=== PATIENT | male | born 1960 | race African-American/Black ===

== ENCOUNTER 2017-02-18 22:47 | Emergency (ER) | payer MEDICARE, OTHER ==
[2017-02-18 22:56] VITALS: BP 117/74; PULSE 48; RESP 16; O2SAT 98
--- NOTE | 2017-02-18 23:08 | ED.REPORT ---
HPI-Chest Pain 40 and Over Date of Service February 18, 2017 ED Provider: Dr. Pierce 56 y/o male with a hx of migraines presents to the ED complaining of chest discomfort, onset 35 minutes ago which radiates to his left arm. The pt reports he was relaxing when he experienced sudden chest pain. He states "it feels like something is coming out of my chest". He currently reports the pain 6/10 in severity and 9/10 maximum. As per the pt's , he was pacing around the house holding his chest. The pt denies taking any medication for the pain. He took Excedrin due to a migraine episode. The pt also took two pills of Nadolol, while he was prescribed 1qd two days ago. He took the last pill at 1900. Associated sx include some SOB and anxiety. He denies dizziness, lightheadedness , diaphoresis, nausea, edema, fever, chills and cough.The pt reports he has been able to do his regular activities. He has no personal or family hx of MO. The pt also complains of intermittent bloating for the past year, which has been getting significantly worse recently. Nursing Notes Stated Complaint: CHEST PAIN Chief Complaint: Chest Pain Nursing Notes Reviewed: Yes ([employer], meds not reconciled) Allergies: Coded Allergies: No Known Allergies (Unverified , 02/18/17) Scheduled Nadolol (Nadolol) 20 Mg Tablet 20 MG PO DAILY Miscellaneous Medications ([tylenol migraine]) General Time Seen by MD: 23:07 Chief Complaint Chest pain Hx Obtained From: Patient, Spouse Arrived By: Walk-in Sudden in Onset?: Yes Onset Occurred: 31 - 45 minutes ago Context of Onset: At rest Symptom Duration: Since onset Location: : Substernal Quality: Painful Radiation: : Arm left Severity: Current: Pain level 6 out of 10 Severity: Maximum: Pain level 9 out of 10 Recent Healthcare: Recent doctor visit Similar Sx Previous: No Risk Factors HEART Score HEART for MACE Score: 0-3 (low risk 0.9%-1.7%) Past Medical History Past Medical History Migraines Past Surgical History none reported Smoking History Never Smoker Social History Alcohol Use: Denies alcohol use Drug Use: Denies drug use Other Social History: Good social support Ambulatory Status Independent Review of Systems Reports: Bloating Constitutional: Denies: Fever Respiratory: Reports: Shortness of breath, Denies: Non-productive cough Cardiovascular: Reports: Chest pain, Denies: Edema GI: Denies: Nausea Skin: Denies Diaphoresis Neurologic: Denies: Dizziness, Lightheaded Psychiatric: Reports: Anxiety Complete sys rev & neg: except as marked. Physical Exam Initial Vital Signs Vital Signs (First) Date Time Temp Pulse Resp B/P Pulse Ox O2 Delivery O2 Flow Rate FiO2 02/18/17 22:56 48 16 117/74 98 Room Air 02/18/17 23:16 36.4 Initial VS: Reviewed, Vital signs abnormal Head / Eyes: Atraumatic, Normocephalic, PERRL ENT: Mucous membranes moist, Conjunctiva normal, No scleral icterus Neck: Supple, Non-tender, Full range of motion Extremities: Vascular intact, Neuro intact, No swelling, No tenderness Skin: Warm, Dry, No cyanosis Neurologic: Alert, Oriented, Nonfocal General/Constitutional: Awake, Alert, No acute distress, Well appearing, Cooperative, Not toxic appearing Behavior: Positive: Anxious Respiratory / Chest: Atraumatic, Breath sounds NL, Breath sounds = bilat, No respiratory distress, No rales, No rhonchi, No wheezing Cardiovascular: Regular rhythm, Heart sounds NL, No gallop, No murmurs, No rubs Mildly Bradycardic Abdomen: Atraumatic, Soft, Non-tender, No guarding, No rebound Interpretation & Diagnostics Lab Results Interpretation Result Diagram: 02/18/17 2300 02/18/17 2300 Test 02/18/17 23:00 White Blood Count 5.9th/mm3 (3.8-10.1) Red Blood Count 4.61mil/mm3 (4.40-5.80) Hemoglobin 13.7g/dL (13.8-17.2) Hematocrit 40.5% (41.0-50.0) Mean Corpuscular Volume 87.9fL (81-100) Mean Corpuscular Hemoglobin 29.7pg (27.0-35.0) Mean Corpuscular Hemoglobin Concent 33.8% (32.0-37.0) Red Cell Distribution Width 12.8% (12.3-15.4) Platelet Count 264bil/L (150-400) Neutrophils (%) (Auto) 43.7% (40-74) Lymphocytes (%) (Auto) 43.6% (14-46) Monocytes (%) (Auto) 8.2% (4-12) Eosinophils (%) (Auto) 4.0% (0-5) Basophils (%) (Auto) 0.3% (0-3) Band Neutrophils % 0% (1-5) Sodium Level 140mEq/L (134-144) Potassium Level 4.1mEq/L (3.5-5.2) Chloride Level 103mEq/L (97-108) Carbon Dioxide Level 23mmol/L (18-29) Blood Urea Nitrogen 14mg/dL (6-24) Creatinine 1.13mg/dL (0.76-1.27) Estimat Glomerular Filtration Rate 71mL/min (>59) Glucose Level 132mg/dL (60-99) Calcium Level 9.0mg/dL (8.5-10.1) Magnesium Level 2.2mg/dL (1.6-2.6) Total Bilirubin 0.2mg/dL (0.0-1.2) Aspartate Amino Transf (AST/SGOT) 32U/L (0-50) Alanine Aminotransferase (ALT/SGPT) 32U/L (0-44) Alkaline Phosphatase 64U/L (25-150) Troponin T 0.010ug/L (0.0-0.011) Total Protein 7.1g/dL (6.4-8.4) Albumin 3.9g/dL (3.4-5.0) Lab Results Interpretation: CBC normal Troponin #1 negative ECG Interpretation ECG Interpretation: Normal Sinus Rhythm. Rate 51. Prolonged HI interval Abnormal R-wave progression Time: 22:54 Interpreted by: ED physician X-Ray Chest Interpretation Chest Xray Interpretation: No acute disease View: Portable Interpretation / Wet Read by: Wet read ED physician Re-Eval/Medical Decision Med Decision/Clinical Course This is a 56-year-old male without a prior history of heart disease is very active and athletic. A brief episode of atypical substernal chest discomfort 30 minutes prior to arrival. He certainly was not that severe, did not think need came in but his noticed his discomfort, and advised to come in for further evaluation. He has no cardiac risk factors and his overall heart score including the initial troponin EKG is 1, placing him at low risk. He has no features to suggest a pulmonary embolus or venous thromboembolism. His physical exam is normal except for mild bradycardia. 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 He did just recently start nadolol for migraines which are chronic problem for him, and she took 2 doses over the course of today, although the last dose was 8 hours prior to presentation. He has no dizziness, lightheadedness or clinical signs of symptomatic bradycardia-so I am not finding evidence that that represents pathology, but I have informed him to be careful with the nadolol given his low baseline heart rate. His initial blood work is normal for starting troponin of 0. The plan is a repeat 2 hour troponin, given overall low risk presentation, if the second troponin is negative, [facility] as reviewed- the patient is agreeable to this. His chest x-rays negative without evidence of pneumothorax or PATHOLOGY. Source of Hx: Old records Time of Eval: 23:15 Re-Evaluation/Progress Note: Rechecked pt. Informed the pt of the plan to take an x-ray and labs for Troponin. Time of Eval: 00:02 Re-Evaluation/Progress Note: Rechecked pt. Discussed imaging results and plan to transfer care to Dr. Parikh Counseled Regarding: Diagnosis, Lab results, Need for follow-up, When/why to return to ED Discharge & Departure Shift Change Sign-Out Patient Care Transferred: Yes Discussed Complaint(s): Yes Laboratory Evaluation: Ordered, not yet done Imaging Studies: Imaging discussed Care Transferred to: Dr. Parikh Care Transferred at: 00:03 Scribe Attestation Portions of this note were transcribed by Carl Lindo. I, , personally performed the history, physical exam and medical decision-making;I reviewed and confirmed the accuracy of the information in the transcribed note. Signed by Shiloh Moraes. 02/18/17 00:03 Uvaldo Pierce MD February 18, 2017 23:08 Carl Lindo February 18, 2017 23:44
[2017-02-18] MEDS ORDERED: TYLENOL MIGRAINE (23:13)
[2017-02-18] MEDS ORDERED: NADO20TA PO (23:13)
[2017-02-18 23:16] VITALS: BP 114/54; PULSE 42; RESP 16; O2SAT 98
[2017-02-18 23:26] LABS: BASOPHILS % (AUTO) 0.3 % (0-3); MONOCYTES % (AUTO) 8.2 % (4-12); Mean Corpuscular Hemoglobin 29.7 pg (27.0-35.0); Mean Corpuscular Volume 87.9 fL (81-100); NEUTROPHILS % (AUTO) 43.7 % (40-74); Platelet Count 264 bil/L (150-400)
[2017-02-18 23:49] LABS: TROPONIN T 0.01 ug/L (0.0-0.011)
[2017-02-19] LABS: Magnesium 2.2 mg/dL (1.6-2.6)
[2017-02-19 02:28] VITALS: BP 98/67; PULSE 43; RESP 16; O2SAT 100
--- NOTE | 2017-02-19 08:14 | DRSVH ---
PROCEDURE: X-RAY CHEST ONE VIEW, PORTABLE ([id number]) INDICATIONS: chest pain TECHNIQUE: One view of the chest was acquired. COMPARISON: None. FINDINGS: Surgical changes and devices: None. Lungs and pleura: No pleural effusions or pneumothorax. Lungs are clear. Mediastinum: Mediastinal contours appear normal. Heart size is normal. Bones and chest wall: No suspicious bony lesions. Overlying soft tissues appear unremarkable. IMPRESSION: Negative chest. Dictated by: Pablo Villegas M.D. on 02/19/2017 at 8:07 Approved by: Pablo Villegas M.D. on 02/19/2017 at 8:07
== END 2017-02-19 02:30 | disposition home or self-care (01) ==
LOC: SED 22:47
DX: R07.2 Precordial pain (principal)